=== PATIENT | female | born 1960 | race Caucasian/White ===

== ENCOUNTER 2021-02-19 12:45 | Outpatient (CLI) | payer BC | END 2021-02-19 12:46 | disposition home or self-care (01) | LOC: TBSIIMAG 12:45 | PROVIDERS: ATTEND Neurological Surgery | DX: M47.22 Other spondylosis with radiculopathy, cervical region (principal); M54.6 Pain in thoracic spine; M54.16 Radiculopathy, lumbar region; M47.814 Spondylosis without myelopathy or radiculopathy, thoracic region | CPT/HCPCS: 72040; 72072; 72100 ==

== ENCOUNTER 2023-07-16 12:29 | Outpatient (CLI) | payer BC ==
[~2023-07-16 12:29] MED LIST: Magnevist 469MG/ML 20 ML VIAL ONE
== END 2023-07-16 12:30 | disposition home or self-care (01) ==
LOC: BICMRI 12:29
PROVIDERS: ATTEND Neurological Surgery
DX: R29.898 Other symptoms and signs involving the musculoskeletal system (principal); G96.191 Perineural cyst
CPT/HCPCS: 72197; 82565; A9579

== ENCOUNTER 2024-03-24 12:56 | Outpatient (CLI) | payer BC | END 2024-03-24 12:57 | disposition home or self-care (01) | LOC: SCSMRI 12:56 → EDSTATUS 13:00 | PROVIDERS: ATTEND Psychiatry & Neurology Neurology | DX: R29.898 Other symptoms and signs involving the musculoskeletal system (principal); M51.34 Other intervertebral disc degeneration, thoracic region; M51.369 Other intervertebral disc degeneration, lumbar region without mention of lumbar back pain or lower extremity pain; M51.379 Other intervertebral disc degeneration, lumbosacral region without mention of lumbar back pain or lower extremity pain; M47.816 Spondylosis without myelopathy or radiculopathy, lumbar region; M47.817 Spondylosis without myelopathy or radiculopathy, lumbosacral region; M48.02 Spinal stenosis, cervical region; M48.03 Spinal stenosis, cervicothoracic region; M48.061 Spinal stenosis, lumbar region without neurogenic claudication; M48.07 Spinal stenosis, lumbosacral region; M41.86 Other forms of scoliosis, lumbar region | CPT/HCPCS: 36415; 72156; 72157; 72158; 82565 ==